=== PATIENT | female | born 1970 | race Caucasian/White ===

== ENCOUNTER → 2018-11-01 | Outpatient (CLI) | payer OTHER ==
[~2018-11-01] MED LIST: GADOBUTROL 7.5 MMOL/7.5 ML PFS ONE; LIDOCAINE 1%-EPI 1:100K, 20ML ONE; SODIUM BICARBONATE 4.0%, 5ML ONE
== END | disposition home or self-care (01) ==
LOC: CFH 12:52
PROVIDERS: ATTEND Surgery
DX: N63.10 Unspecified lump in the right breast, unspecified quadrant (principal)
CPT/HCPCS: 19081; 77049; 77065; 88305; A9585; J3490

== ENCOUNTER 2018-11-13 10:32 | Day surgery (SDC) | payer OTHER ==
[~2018-11-13] VITALS: Ht 160 cm; Wt 50.6 kg
[2018-11-13] MEDS ORDERED: LACTATED RINGERS 1,000 ML IV SCH (12:04)
[2018-11-13] MEDS ORDERED: no medications (12:05)
[2018-11-13 12:06] VITALS: BP 134/94
[2018-11-13] MEDS ORDERED: FENTANYL PF 250 MCG/5ML ONE (12:31)
[2018-11-13] MEDS ORDERED: MIDAZOLAM 1 MG/ML, 2ML ONE (12:31)
[2018-11-13 12:43] LABS: HCG UR SG 1.022 (1.003-1.030)
[2018-11-13 12:57] LABS: BASOPHILS # (AUTO) 0.04 x10^3/uL (0-0.1); BASOPHILS % (AUTO) 1 % (0-1); EOSINOPHILS # (AUTO) 0.04 x10^3/uL (0-0.4); EOSINOPHILS % (AUTO) 1 % (1-7); LYMPHOCYTES # (AUTO) 1.98 x10^3/uL (1-3.4); LYMPHOCYTES % (AUTO) 25 % (22-44); MD NO; MEAN CORPUSCULAR HEMOGLOBIN 29.1 pg (27.0-34.8); MEAN CORPUSCULAR VOLUME 88.1 fL (80-100); MEAN PLATELET VOLUME 7.3 fL (7.4-10.4); MONOCYTES # (AUTO) 0.52 x10^3/uL (0.2-0.8); MONOCYTES % (AUTO) 7 % (2-9); NEUTROPHILS # (AUTO) 5.32 x10^3/uL (1.8-6.8); NEUTROPHILS % (AUTO) 67 % (42-75); PLATELET COUNT 267 x10^3/uL (130-400); RED BLOOD COUNT 5.24 x10^6/uL (3.82-5.3); RED CELL DISTRIBUTION WIDTH 14.4 % (9.6-15.2)
[2018-11-13] MEDS ORDERED: ISOSULFAN BLUE 10 MG/ML, 5ML IV ONE (12:59)
[2018-11-13] MEDS ORDERED: CEFAZOLIN 1,000 MG ONE (12:59)
[2018-11-13] MEDS ORDERED: BUPIVACAINE/PF-EPI 0.5% 1:200K ONE (12:59)
[2018-11-13] MEDS ORDERED: BACITRACIN 50,000 UNIT ONE (12:59)
[2018-11-13] MEDS ORDERED: PROPOFOL 50 ML ONE (13:00)
[2018-11-13] MEDS ORDERED: GENTAMICIN 80 MG/2 ML ONE (13:06)
[2018-11-13] MEDS ORDERED: SUCCINYLCHOLINE 20 MG/ML, 10ML ONE (13:34)
[2018-11-13] MEDS ORDERED: ONDANSETRON 2MG/ML, 2ML ONE (13:34)
[2018-11-13] MEDS ORDERED: ROCURONIUM 10 MG/ML,10ML ONE (13:34)
[2018-11-13] MEDS ORDERED: DEXAMETHASONE 4 MG/ML, 1ML ONE (13:34)
[2018-11-13] MEDS ORDERED: GENTAMICIN 80 MG/2 ML IV ONE (13:54)
[2018-11-13] MEDS ORDERED: BUPIVACAINE/PF-EPI 0.5% 1:200K INFIL ONE (13:54)
[2018-11-13] MEDS ORDERED: BACITRACIN 50,000 UNIT IM ONE (13:54)
[2018-11-13] MEDS ORDERED: CEFAZOLIN 1,000 MG IVPush ONE (13:54)
[2018-11-13] MEDS ORDERED: DIAZEPAM 5 MG/ML, 2ML IVPush PRN (15:00)
[2018-11-13] MEDS ORDERED: DIPHENHYDRAMINE 50 MG/ML, 1ML IVPush PRN (15:00)
[2018-11-13] MEDS ORDERED: MEPERIDINE/PF 25MG/0.5ML IVPush PRN (15:00)
[2018-11-13] MEDS ORDERED: MORPHINE SULFATE 4 MG/ML, 1ML IVPush PRN (15:00)
[2018-11-13] MEDS ORDERED: PROMETHAZINE 25 MG SUPP PR PRN (15:00)
[2018-11-13] MEDS ORDERED: LABETALOL 5MG/ML, 20ML IV PRN (15:00)
[2018-11-13] MEDS ORDERED: EPHEDRINE 50 MG/ML, 1ML IM PRN (15:00)
[2018-11-13] MEDS ORDERED: ONDANSETRON ODT 8 MG PO PRN (15:00)
[2018-11-13] MEDS ORDERED: PROMETHAZINE 25 MG/ML, 1ML IV PRN (15:00)
[2018-11-13] MEDS ORDERED: ONDANSETRON 2MG/ML, 2ML IV PRN (15:00)
[2018-11-13] MEDS ORDERED: OXYcodone 5 MG/5 ML ORAL.SOL UDC PO PRN (15:00)
[2018-11-13] MEDS ORDERED: MIDAZOLAM 1 MG/ML, 2ML IV PRN (15:00)
[2018-11-13] MEDS ORDERED: PROMETHAZINE 12.5 MG SUPP PR PRN (15:00)
[2018-11-13] MEDS ORDERED: EPHEDRINE 50 MG/ML, 1ML IVPush PRN (15:00)
[2018-11-13] MEDS: FENTANYL PF 100 MCG/2ML IV PRN ×2 (17:00→17:10)
== END 2018-11-13 18:30 | disposition home or self-care (01) ==
LOC: CFH 10:32 → OUT 18:30
PROVIDERS: ATTEND Plastic Surgery
DX: D05.12 Intraductal carcinoma in situ of left breast (principal); N60.11 Diffuse cystic mastopathy of right breast; R59.1 Generalized enlarged lymph nodes; F41.9 Anxiety disorder, unspecified; Z88.8 Allergy status to other drugs, medicaments and biological substances
CPT/HCPCS: 19125; 19281; 19303; 36415; 38525; 38792; 81025; 85025; 88307; 88333; A9541; C1729; C1762; J0330; J0690; J1100; J1580; J2250; J2405; J2704; J3010

== ENCOUNTER → 2019-10-02 | Outpatient (CLI) | payer OTHER ==
[~2019-10-02] MED LIST changes: -GADOBUTROL 7.5 MMOL/7.5 ML PFS ONE; -LIDOCAINE 1%-EPI 1:100K, 20ML ONE; -SODIUM BICARBONATE 4.0%, 5ML ONE; +TAMO20TA PO; +no medications
== END | disposition home or self-care (01) ==
LOC: CFH 10:00
PROVIDERS: ATTEND Internal Medicine Hematology & Oncology
DX: R92.2 Inconclusive mammogram (principal); Z85.3 Personal history of malignant neoplasm of breast; Z98.82 Breast implant status; Z90.12 Acquired absence of left breast and nipple
CPT/HCPCS: 77066; G0279

== ENCOUNTER → 2020-11-19 | Outpatient (CLI) | payer BC, OTHER | END | disposition home or self-care (01) | LOC: CFH 10:19 | PROVIDERS: ATTEND Internal Medicine Hematology & Oncology | DX: Z12.31 Encounter for screening mammogram for malignant neoplasm of breast (principal); Z12.39 Encounter for other screening for malignant neoplasm of breast; C50.412 Malignant neoplasm of upper-outer quadrant of left female breast | CPT/HCPCS: 76641; 77063; 77067 ==